=== PATIENT | male | born 1980 | race African-American/Black ===

== ENCOUNTER 2017-05-09 16:14 | Emergency (ER) | payer OTHER ==
[~2017-05-09] VITALS: Ht 177.8 cm; Wt 110.0 kg
[2017-05-09 16:21] VITALS: TEMP 37.3; Ht 177.8 cm; Wt 110.0 kg
--- NOTE | 2017-05-09 16:51 | EMERGENCY ROOM VISIT NOTE ---
History Report prepared by Santi: Maxime Pascual Under the Supervision of: Dr. Chiquita Emerson D.O. First contact with patient: 16:35 Chief Complaint: OTHER COMPLAINT Stated Complaint: AMS History of Present Illness The patient is a 36 year old male who presents to the Emergency Room with complaints of a suspected drug overdose beginning today. He is incarcerated at [facility]. Per halfway staff, the patient was acting out violently today and had to be restrained. They state that the patient is suspected of using K2, as it has been prevalent through the halfway recently. The patient is on medication for anger, depression and anxiety, and states that he has not been taking them for the past few weeks because he does not like the way they make him feel. He states that he ate normally today. He denies urinary symptoms or diarrhea. The patient denies using drugs. He smokes cigarettes. Source of History: patient, other (halfway staff) Onset: Today Quality: other (drug overdose) Associated Symptoms: No diarrhea, No urinary symptoms Review of Systems See HPI for pertinent positives & negatives. A total of 10 systems reviewed and were otherwise negative. Past Medical & Surgical Medical Problems: (1) Anxiety (2) Depression Family History No pertinent family history stated. Social History Smoking Status: Current Every Day Smoker Housing Status: other (incarcerated) Occupation Status: other (incarcerated) Current/Historical Medications Scheduled Citalopram Hydrobromide (Citalopram Hydrobromide), 40 MG PO DAILY Topiramate (Topamax), 100 MG PO BID Allergies Coded Allergies: No Known Allergies (Unverified , 05/09/17) Physical Exam Vital Signs Date Time Temp Pulse Resp B/P (MAP) Pulse Ox O2 Delivery O2 Flow Rate FiO2 05/09/17 17:47 104 18 117/70 98 05/09/17 16:38 104 05/09/17 16:21 37.3 114 20 118/73 98 Room Air Physical Exam GENERAL: alert, well appearing, well nourished, no distress, non-toxic EYE EXAM: normal conjunctiva, PERRL and EOM's grossly intact OROPHARYNX: no exudate, no erythema, lips, buccal mucosa, and tongue normal and mucous membranes are moist NECK: supple, no nuchal rigidity, no adenopathy, non-tender LUNGS: Clear to auscultation. Normal chest wall mechanics HEART: no murmurs, S1 normal and S2 normal ABDOMEN: abdomen soft, non-tender, normo-active bowel sounds, no masses, no rebound or guarding. BACK: Back is symmetrical on inspection and there is no deformity, no midline tenderness, no CVA tenderness. SKIN: no rashes and no bruising UPPER EXTREMITIES: upper extremities are grossly normal. LOWER EXTREMITIES: No pitting edema. NEURO EXAM: Normal sensorium, cranial nerves II-XII grossly intact, normal speech, no gross weakness of arms, no gross weakness of legs. Medical Decision & Procedures Laboratory Results Test 05/09/17 17:01 Urine Opiates Screen NEG (NEG) Urine Methadone, Qualitative NEG (NEG) Urine Barbiturates NEG (NEG) Urine Phencyclidine (PCP) Level NEG (NEG) Ur Amphetamine/Methamphetamine NEG (NEG) MDMA (Ecstasy) Screen NEG (NEG) Urine Benzodiazepines Screen NEG (NEG) Urine Cocaine Metabolite NEG (NEG) Urine Marijuana (THC) NEG (NEG) Laboratory results per my review. ED Course 163: The patient was evaluated in room B2B. A complete history and physical exam was performed. 165: I spoke with Dr. Sylvia Rudd from the [facility]. She recommends the patient have a urine toxicology screen. 1730: Upon reevaluation, the patient is feeling better. I discussed the findings and the treatment plan with the patient. He verbalizes agreement and understanding. He was discharged home. Medical Decision Differential diagnosis: Etiologies such as toxicologic, infection, hypoglycemia, electrolyte abnormalities, cardiac sources, intracerebral event, neurologic, as well as others were entertained. Patient here for possible K2 ingestion. Patient denies any recreational drug use including K2 at bedside. States he feels normal, was not involved in any altercation and did not sustain any trauma, has not recently been ill. Patient admits to not taking his depression and anxiety medications as prescribed because he does not like the way he feels on them. Patient's you tox here was negative. I discussed the presentation and exam with the on-call physician from [facility]. I feel patient is stable for transfer back to the facility at this time. Doubt occult infectious etiology, patient with a normal nonfocal neuro exam, doubt CVA or other acute neuro etiology, doubt cardiac etiology. Patient advised to quit smoking. Medication Reconcilliation Current Medication List: was personally reviewed by me Blood Pressure Screening Patient's blood pressure: Normal blood pressure Blood pressure disposition: Did not require urgent referral Impression Primary Impression: Encounter for medical screening examination Additional Impression: Tobacco abuse Scribe Attestation The scribe's documentation has been prepared under my direction and personally reviewed by me in its entirety. I confirm that the note above accurately reflects all work, treatment, procedures, and medical decision making performed by me. Departure Information Dispostion Home / Self-Care Referrals Billy HASKINS (PCP) Patient Instructions My [facility] Additional Instructions Please take your medications as prescribed. Please do not use any recreational drugs. Please consider quitting smoking. If you've any other new or concerning symptoms please return the emergency room. Problem Qualifiers
[2017-05-09] MEDS ORDERED: CITA10TA4 PO (17:32)
[2017-05-09] MEDS ORDERED: LORA-741 PO (17:32)
[2017-05-09] MEDS ORDERED: TOPI100T20 PO (17:35)
[2017-05-09] MEDS ORDERED: CITA40TA4 PO (17:35)
[2017-05-09 17:47] VITALS: BP 117/70; PULSE 104; O2SAT 98
[2017-05-09 18:10] LABS: BENZODIAZEPINE, URINE NEG (NEG); COCAINE,URINE NEG (NEG); PHENCYCLIDINE, URINE NEG (NEG)
== END 2017-05-09 17:49 | disposition home or self-care (01) ==
LOC: C.EDB 16:17
DX: Z03.6 Encounter for observation for suspected toxic effect from ingested substance ruled out (principal); F17.210 Nicotine dependence, cigarettes, uncomplicated; F41.9 Anxiety disorder, unspecified; F32.9 Major depressive disorder, single episode, unspecified; Z79.899 Other long term (current) drug therapy